=== PATIENT | female | born 1980 | race American Indian/Alaskan Native ===

== ENCOUNTER 2018-06-07 16:42 | Emergency (ER) | payer OTHER ==
[2018-06-07 16:57] VITALS: RESP 16; TEMP 98.2; O2SAT 99
--- NOTE | 2018-06-07 17:40 | ED PDOC ---
Arrival/HPI - General Historian: Patient - History of Present Illness Narrative History of Present Illness (Text): 06/07/18 17:40 Patient is a 37 year old female with no significant past medical history who presents to the emergency dept for left lower leg pain that started 1 day ago. Patient states that she had a normal vaginal delivery 5 days ago. and delivery were both uncomplicated. She was diagnosed with varicose veins during the but has been asymptomatic until now. She states that the pain is localized to the left lower leg, denies radiation. She took Tylenol with minimal relief. Pain is worse with ambulation and better at rest. She reports having bilateral lower extremity swelling that has been slowly improving. She denies headaches, dizziness, cp, palpitations, shortness of breath. Offers no other complaints at this time. Time/Duration: 24 hours Symptom Onset: Gradual Symptom Course: Intermittent Quality: Throbbing Severity Level: 6, Moderate Context: Standing, Walking <Cecilia Rubio - Last Filed: 06/07/18 18:41> <Clovis Mckeon - Last Filed: 06/07/18 18:48> - General Chief Complaint: Lower Extremity Problem/Injury Time Seen by Provider: 06/07/18 16:45 Past Medical History - Provider Review Nursing Documentation Reviewed: Yes - Travel History Have you recently traveled outside [place] w/in the past 3 mons?: No - Infectious Disease Hx of Infectious Diseases: None - Tetanus Immunization Tetanus Immunization: Unknown - Past Medical History Past Medical History: No Previous - Psychiatric Hx Substance Use: No <Cecilia Rubio - Last Filed: 06/07/18 18:41> Family/Social History - Physician Review Nursing Documentation Reviewed: Yes Family/Social History: No Known Family HX Smoking Status: Never Smoked Hx Alcohol Use: No Hx Substance Use: No Hx Substance Use Treatment: No <Cecilia Rubio - Last Filed: 06/07/18 18:41> Allergies/Home Meds <Cecilia Rubio - Last Filed: 06/07/18 18:41> <Clovis Mckeon - Last Filed: 06/07/18 18:48> Allergies/Adverse Reactions: Allergies latex Allergy (Verified 06/07/18 16:56) RASH Review of Systems - Review of Systems Constitutional: Normal. absent: Fevers, Night Sweats Eyes: Normal. absent: Vision Changes ENT: Normal. absent: Hearing Changes Respiratory: Normal. absent: SOB, Cough Cardiovascular: Normal. absent: Chest Pain, Palpitations Gastrointestinal: Normal. absent: Abdominal Pain, Constipation, Diarrhea, Nausea, Vomiting Genitourinary Female: Normal. absent: Dysuria Musculoskeletal: Other (Leg pain and leg swelling) Neurological: Normal. absent: Headache, Dizziness <RamiroCecilia - Last Filed: 06/07/18 18:41> Physical Exam Vital Signs Reviewed: Yes Vital Signs Temp Pulse Resp BP Pulse Ox 06/07/18 16:56 98.2 F 100 H 16 158/89 H 99 Temperature: Afebrile Blood Pressure: Hypertensive Pulse: Regular Respiratory Rate: Normal Appearance: Positive for: Well-Appearing, Comfortable Pain Distress: Mild Mental Status: Positive for: Alert and Oriented X 3 - Systems Exam Head: Present: Atraumatic, Normocephalic Pupils: Present: PERRL Extroacular Muscles: Present: EOMI Conjunctiva: Present: Normal Mouth: Present: Moist Mucous Membranes Neck: Present: Normal Range of Motion Respiratory/Chest: Present: Clear to Auscultation, Good Air Exchange. No: Accessory Muscle Use Cardiovascular: Present: Regular Rate and Rhythm, Normal S1, S2 Abdomen: Present: Normal Bowel Sounds. No: Tenderness, Distention, Peritoneal Signs Lower Extremity: Present: Edema (Bilateral leg edema, +1), CALF TENDERNESS, NORMAL PULSES, Other (+calf tenderness to left leg with area of induration and warm to touch; prominent varicose veins). No: Jeanne's Sign Skin: Present: Warm, Dry Psychiatric: Present: Alert, Oriented x 3 <RamiroCecilia - Last Filed: 06/07/18 18:41> Vital Signs Temp Pulse Resp BP Pulse Ox 06/07/18 16:56 98.2 F 100 H 16 158/89 H 99 <Clovis Mckeon - Last Filed: 06/07/18 18:48> Medical Decision Making ED Course and Treatment: 06/07/18 17:46 Patient seen and examined at bedside. Patient reports having 1 day history of left lower leg pain that is worse with ambulation. On exam, left calf is tender to palpation, indurated. We will give Toradol 30mg IM x 1 dose and order lower extremity dopplers. 06/07/18 18:39 Patient returned from [place]. Per tech, US negative for DVT and superficial clot was found in the saphenous vein (official report pending). We will discharge patient home. Patient instructed to follow up with PMD. - RAD Interpretation Radiology Orders: 06/07/18 17:12 DUPLEX LOWER EXTRM VEIN BILAT [US] Stat - Medication Orders Current Medication Orders: Discontinued Medications Ketorolac Tromethamine (Toradol) 30 mg IM STAT STA Stop: 06/07/18 17:13 Last Admin: 06/07/18 17:24 Dose: Not Given Non-Admin Reason: Patient Refused <Cecilia Rubio - Last Filed: 06/07/18 18:41> ED Course and Treatment: Seen and examined with resident. 37 y/o F p/w L leg tender, warm, hardened varicose veins. On exam, same, appears to be superficial thrombophlebitis. US no DVT. - RAD Interpretation Radiology Orders: 06/07/18 17:12 DUPLEX LOWER EXTRM VEIN BILAT [US] Stat - Medication Orders Current Medication Orders: Discontinued Medications Ketorolac Tromethamine (Toradol) 30 mg IM STAT STA Stop: 06/07/18 17:13 Last Admin: 06/07/18 17:24 Dose: Not Given Non-Admin Reason: Patient Refused <Clovis Mckeon - Last Filed: 06/07/18 18:48> Disposition/Present on Arrival - Present on Arrival Any Indicators Present on Arrival: No History of DVT/PE: No History of Uncontrolled Diabetes: No Urinary Catheter: No History of Decub. Ulcer: No History Surgical Site Infection Following: None - Disposition Have Diagnosis and Disposition been Completed?: Yes Disposition Time: 18:50 Patient Plan: Discharge <Cecilia Rubio - Last Filed: 06/07/18 18:41> <Clovis Mckeon - Last Filed: 06/07/18 18:48> - Disposition Diagnosis: Superficial thrombosis of left lower extremity Disposition: HOME/ ROUTINE Patient Problems: Current Active Problems Problem Status Onset Superficial thrombosis of left lower extremity Acute Condition: GOOD Discharge Instructions (ExitCare): Superficial Phlebitis Additional Instructions: - Apply warm compresses twice a day - Motrin 600mg PO Q8H prn pain - Please complete course of antibiotics - F/U with your PMD within 2-3 days - If symptoms worsen, return to the emergency department Prescriptions: Clindamycin [Cleocin] 300 mg PO BID #10 cap Ibuprofen [Motrin] 600 mg PO Q8H #15 tab Forms: [employer] (Spanish)
[2018-06-07 18:55] VITALS: BP 145/90; PULSE 86
--- NOTE | 2018-06-08 13:33 | US ---
HISTORY: Leg pain and swelling. Evaluate for DVT PHYSICIAN(S): Rickey Dave MD. TECHNIQUE: Duplex sonography and color-flow Doppler with graded compression were used to evaluate the deep venous systems of both lower extremities. The exam is somewhat limited by body habitus and edema FINDINGS: The visualized deep venous systems of both lower extremities are sonographically normal and compressible. Normal wave forms and augmentation are seen. There is no sonographic evidence for deep venous thrombosis in the visualized segments of both lower extremities. There is acute superficial thrombophlebitis involving the left short saphenous vein and associated varicose veins. IMPRESSION: No sonographic evidence for deep venous thrombosis in the visualized segments of both lower extremities. Acute superficial thrombophlebitis involving the left shorter saphenous vein
== END 2018-06-07 18:53 | disposition home or self-care (01) ==
LOC: ED 16:42
DX: I82.402 Acute embolism and thrombosis of unspecified deep veins of left lower extremity (principal)